=== PATIENT | female | born 1995 | race Caucasian/White ===

== ENCOUNTER 2017-05-12 03:28 | Emergency (ER) | payer SELFPAY ==
--- NOTE | 2017-05-12 04:01 | ER Document Report ---
ED General - General Chief Complaint: Pain With Urination Stated Complaint: POSSIBLE BLADDER INFECTION Time Seen by Provider: 05/12/17 03:39 Notes: Patient is a 21-year-old female presents with complaint of frequent urination, dribbling pain when she pees, and pressure in her bladder. Symptoms have been ongoing for 3 days. She does have history of recurrent UTIs. She does have chronic abnormal vaginal discharge which she has been checked for many times and she says testing is always come back negative. She said this is unchanged. She does have irregular menstrual periods. She was last sexually active 1 week ago. She denies any fevers. No vomiting. No diarrhea. No other complaints at this time. TRAVEL OUTSIDE OF THE [place] IN LAST 30 DAYS: No - Related Data Allergies/Adverse Reactions: No Known Allergies Allergy (Verified 05/12/17 04:01) Past Medical History - Social History Smoking Status: Never Smoker Frequency of alcohol use: Social Drug Abuse: None Family History: Reviewed & Not Pertinent Patient has suicidal ideation: No Patient has homicidal ideation: No Renal/ Medical History: Denies: Hx Peritoneal Dialysis Review of Systems - Review of Systems Notes: My Normal Review Basic REVIEW OF SYSTEMS: CONSTITUTIONAL : Denies fever, chills, or sweats. Denies recent illness. RESPIRATORY: Denies cough, cold, or chest congestion. Denies shortness of breath, difficulty breathing, or wheezing. GASTROINTESTINAL: Denies abdominal pain. Denies nausea, vomiting, or diarrhea. Denies constipation. Last BM: GENITOURINARY: Dysuria and urinary frequency. FEMALE GENITOURINARY: Chronic abnormal vaginal discharge. MUSCULOSKELETAL: Denies neck or back pain or joint pain or swelling. SKIN: Denies rash or skin lesions. NEUROLOGICAL: Denies altered mental status or loss of consciousness. Denies headache. Denies weakness or paralysis or loss of use of either side. Denies problems with gait or speech. Denies sensory or motor loss. ALL OTHER SYSTEMS REVIEWED AND NEGATIVE. Physical Exam - Vital signs Vitals: Temp Pulse Resp BP Pulse Ox 97.9 F 74 17 126/71 H 98 05/12/17 03:34 05/12/17 03:34 05/12/17 03:34 05/12/17 03:34 05/12/17 03:34 - Notes Notes: General Appearance: Well nourished, alert, cooperative, no acute distress, no obvious discomfort. Well-appearing. Vitals: reviewed, See vital signs table. Head: no swelling or tenderness to the head Eyes: PERRL, EOMI, Conjuctiva clear Mouth: No decreasd moisture Lungs: No wheezing, No rales, No rhonci, No accessory muscle use, good air exchange bilaterally. Heart: Normal rate, Regular rythm, No murmur, no rub Abdomen: Normal BS, soft, No rigidity, mild suprapubic abdominal tenderness to palpation., Extremities: strength 5/5 in all extremities, good pulses in all extremities, no swelling or tenderness in the extremities, no edema. Skin: warm, dry, appropriate color, no rash Neuro: speech clear, oriented x 3, normal affect, responds appropriately to questions. Course - Re-evaluation Re-evalutation: 05/12/17 06:43 Patient's symptoms history and urinalysis consistent with a UTI. Patient was placed on Keflex. She is encouraged to return to ER if she has fevers, worsening pain, or feels unwell. Patient encouraged follow-up with her doctor or return to the ER if her symptoms have not resolved in 3 days. Patient agrees with plan will be discharged home. Dictation of this chart was performed using voice recognition software; therefore, there may be some unintended grammatical errors. - Vital Signs Vital signs: Temp Pulse Resp BP Pulse Ox 98.2 F 95 20 109/84 98 05/12/17 05:01 05/12/17 05:01 05/12/17 05:01 05/12/17 05:01 05/12/17 05:01 - Laboratory Laboratory results interpreted by me: 05/12/17 03:50 Urine Blood LARGE H Urine Nitrite POSITIVE H Urine Urobilinogen 4.0 H Ur Leukocyte Esterase SMALL H Discharge - Discharge Clinical Impression: UTI (urinary tract infection) Qualifiers: Urinary tract infection type: site unspecified Hematuria presence: without hematuria Qualified Code(s): N39.0 - Urinary tract infection, site not specified Condition: Good Disposition: HOME, SELF-CARE Additional Instructions: URINARY TRACT INFECTION: Your evaluation indicates that you have a urinary tract infection. This is due to germs growing in the bladder. This is a common problem. This infection usually responds quickly to antibiotics. Your antibiotic should be taken exactly as prescribed. Drink plenty of fluids -- three to four quarts a day. Occasionally, a bladder anesthetic will be prescribed to help stop the feeling of urgency until the antibiotic has a chance to clear the infection. This may cause your urine to be dark orange. Certain urine infections require a culture. If the doctor obtained a culture, the results will be back in two days. You should call to see if a change in treatment is needed. A repeat urinalysis after you finish treatment is often recommended. The physician will let you know if further testing is required. Call the doctor if you develop fever, chills, flank pain, inability to urinate, or blood in the urine. ANTIBIOTIC THERAPY: You have been given an antibiotic prescription. It's important that you take all the medication, unless instructed otherwise by your physician. Failure to complete the entire course can result in relapse of your condition. Common side effects of antibiotics include nausea, intestinal cramping, or diarrhea. Women may develop vaginal yeast infections, and babies can get yeast (thrush) in the mouth following the use of antibiotics. Contact your physician if you develop significant side effects from this medication. Allergy to this antibiotic can result in hives, wheezing, faintness, or itching. If symptoms of allergy occur, stop the medication and call the doctor. CEPHALEXIN: The antibiotic you've been prescribed is a member of the cephalosporin class. This type of antibiotic covers a wide variety of infections, including those of the skin, lungs, and urinary tract. It's useful for staph infections. This antibiotic is slightly similar to the penicillin family. In rare cases , a person who is allergic to penicillin will also be allergic to this medication. If you have had a severe allergic reaction to penicillin, and have not taken this antibiotic since that time, notify your doctor. Antibiotics which cover many germs ("broad spectrum" antibiotics) are more likely to cause diarrhea or "yeast" infections. Women prone to vaginal yeast problems may suffer an attack after taking this antibiotic. In infants, oral thrush (white spots "stuck" on the cheek) or yeast diaper rash may result. See your doctor if these problems occur. Call at once if you develop itching, hives , shortness of breath, or lightheadedness. FOLLOW-UP CARE: If you have been referred to a physician for follow-up care, call the physician s office for an appointment as you were instructed or within the next two days. If you experience worsening or a significant change in your symptoms, notify the physician immediately or return to the Emergency Department at any time for re-evaluation. Please return to the ER immediately if you have fevers, vomiting, or worsening of your symptoms. Return to the ER or your physician in 3 days if you are still having any symptoms. Prescriptions: Cephalexin Monohydrate [Keflex 500 mg Capsule] 500 mg PO BID #10 capsule
[2017-05-12 04:20] LABS: APPEARANCE,URINE CLEAR; BILIRUBIN,URINE NEGATIVE (NEGATIVE); COLOR,URINE AMBER; GLUCOSE, URINE NEGATIVE (NEGATIVE); KETONES,URINE NEGATIVE (NEGATIVE); LEUKOCYTE ESTERASE,URINE SMALL (NEGATIVE); NITRITE,URINE POSITIVE (NEGATIVE); PROTEIN,URINE NEGATIVE (NEGATIVE); URINE SPECIFIC GRAVITY 1.002
[2017-05-12] MEDS ORDERED: CEPHALEXIN 500 MG CAPSULE PO ONE (04:29)
[2017-05-12 05:05] VITALS: BP 109/84
== END 2017-05-12 05:00 | disposition home or self-care (01) ==
LOC: ER 03:28
DX: N39.0 Urinary tract infection, site not specified (principal); R30.9 Painful micturition, unspecified
CPT/HCPCS: 81001; 81025; 99283

== ENCOUNTER 2017-06-17 17:07 | Emergency (ER) | payer OTHER ==
[2017-06-17] MEDS ORDERED: OXYCODONE-ACETAMINOPHEN 5-325 MG TABLET PO ONE (18:02)
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
[2017-06-17 19:24] VITALS: BP 114/66
== END 2017-06-17 19:47 | disposition home or self-care (01) ==
LOC: ER 17:07
PROC: 2W3QX1Z Immobilization of Right Lower Leg using Splint (ICD-10-PCS; principal; 2017-06-17)
DX: S92.301A Fracture of unspecified metatarsal bone(s), right foot, initial encounter for closed fracture (principal); M79.674 Pain in right toe(s); M79.89 Other specified soft tissue disorders; V87.7XXA Person injured in collision between other specified motor vehicles (traffic), initial encounter; F17.200 Nicotine dependence, unspecified, uncomplicated
CPT/HCPCS: 99283

== ENCOUNTER 2019-09-08 20:33 | Emergency (ER) | payer OTHER ==
--- NOTE | 2019-09-08 20:49 | ER Document Report ---
ED Medical Screen (RME) - General Stated Complaint: PELVIC AND ABDOMINAL PAIN Time Seen by Provider: 09/08/19 20:44 Mode of Arrival: Ambulatory Information source: Patient Notes: 23-year-old female G2, P1 approximately 18 weeks presents emergency department with complaints of right lower quadrant abdominal pain for the past 3 days. Denies fever vomiting diarrhea. Reports it hurts when she stands up. Reports vaginal discharge that she has had since the beginning of her . Denies pain with void. Patient right lower quad tender to palpate. I have greeted and performed a rapid initial assessment of this patient. A comprehensive ED assessment and evaluation of the patient, analysis of test results and completion of the medical decision making process will be conducted by additional ED providers. TRAVEL OUTSIDE OF THE [place] IN LAST 30 DAYS: No - Related Data Allergies/Adverse Reactions: No Known Allergies Allergy (Verified 05/12/17 04:01) Past Medical History Renal/ Medical History: Denies: Hx Peritoneal Dialysis
[2019-09-08 21:09] LABS: APPEARANCE,URINE CLEAR; BILIRUBIN,URINE NEGATIVE (NEGATIVE); COLOR,URINE STRAW; GLUCOSE, URINE NEGATIVE (NEGATIVE); KETONES,URINE NEGATIVE (NEGATIVE); LEUKOCYTE ESTERASE,URINE NEGATIVE (NEGATIVE); NITRITE,URINE NEGATIVE (NEGATIVE); PROTEIN,URINE NEGATIVE (NEGATIVE); URINE SPECIFIC GRAVITY 1.004; UROBILINOGEN,URINE NEGATIVE mg/dL (<2.0)
[2019-09-08 21:11] LABS: ABSOLUTE EOSINOPHILS # (AUTO) 0.1 10^3/uL (0.0-0.6); ABSOLUTE LYMPHOCYTES (AUTO) 2.2 10^3/uL (0.5-4.7); ABSOLUTE MONOCYTES (AUTO) 0.8 10^3/uL (0.1-1.4); ABSOLUTE NEUT (AUTO) 6.5 10^3/uL (1.7-8.2); BASOPHILS % (AUTO) 0.4 % (0-2); EOSINOPHILS % (AUTO) 0.6 % (0-6); HEMATOCRIT 39.2 % (36.0-47.0); HEMOGLOBIN 13.6 g/dL (12.0-15.5); MEAN CORPUSCULAR HEMOGLOBIN 29.6 pg (27.0-33.4); MEAN CORPUSCULAR HGB CONC 34.7 g/dL (32.0-36.0); MEAN CORPUSCULAR VOLUME 85 fl (80-97); MONOCYTES % (AUTO) 8.8 % (3-13); PLATELET COUNT 267 10^3/uL (150-450); RED CELL DISTRIBUTION WIDTH 13.3 % (11.5-14.0); SEGMENTED NEUTROPHILS % (AUTO) 67.2 % (42-78); TOTAL CELLS COUNTED % (AUTO) 100 %; WHITE BLOOD COUNT 9.6 10^3/uL (4.0-10.5)
[2019-09-08 21:22] LABS: ALBUMIN 3.4 g/dL (3.5-5.0); ALKALINE PHOSPHATASE 78 U/L (38-126); ANION GAP 7 (5-19); ASPARTATE AMINO TRANSFERASE 15 U/L (14-36); BILIRUBIN,TOTAL 0.2 mg/dL (0.2-1.3); BLOOD UREA NITROGEN 7 mg/dL (7-20); CALCIUM 8.8 mg/dL (8.4-10.2); CARBON DIOXIDE 25 mmol/L (22-30); CHLORIDE 104 mmol/L (98-107); GLUCOSE 104 mg/dL (75-110); POTASSIUM 3.7 mmol/L (3.6-5.0); TOTAL PROTEIN 6.5 g/dL (6.3-8.2)
--- NOTE | 2019-09-08 21:52 | RADIOLOGY REPORT (SQ) ---
US PELVIS EXAM DATE: 09/08/2019 8:46 PM CDT HISTORY: Pelvic pain. COMPARISON: None. TECHNIQUE: Grayscale, color Doppler, and spectral Doppler ultrasound images of the pelvis were obtained. FINDINGS: There is a single live intrauterine gestation in vertex position. The heart rate is 163 bpm. The placenta is anterior. Cervix is closed and measures 3 cm. The appendix is not visualized. No fluid collection is seen in the right lower quadrant. IMPRESSION: 1. Appendix not seen. 2. Single live IUP.
--- NOTE | 2019-09-08 23:10 | ER Document Report ---
Entered by THOM DOBSON SCRIBE 09/08/19 4014 Acting as scribe for:YOLIE DENIS MD ED General - General Chief Complaint: OB Problem (<20wks) Stated Complaint: PELVIC AND ABDOMINAL PAIN Time Seen by Provider: 09/08/19 20:44 Primary Care Provider: ZHOU CABRERA PA [Primary Care Provider] - Follow up as needed Mode of Arrival: Ambulatory Information source: Patient Notes: This 23-year-old female presents to the emergency department complaining of abdominal pain that began three days ago. Patient explains that her abdominal pain is in the RLQ. Patient stated that abdominal pain is worse when straining on the toilet, moving from a sit to a stand and while sitting in a certain position. Patient reports constipation with having a bowel movement every other day. Patient states that she is 18 weeks with her second child with no known complications at this time. Patient is taking vitamins and has had one ultrasound. TRAVEL OUTSIDE OF THE [place] IN LAST 30 DAYS: No - Related Data Allergies/Adverse Reactions: No Known Allergies Allergy (Verified 05/12/17 04:01) Home Medications: vitamins Past Medical History - General Information source: Patient - Social History Smoking Status: Never Smoker Cigarette use (# per day): No Chew tobacco use (# tins/day): No Occupation: Unemployed Lives with: Family Family History: Reviewed & Not Pertinent Patient has suicidal ideation: No Patient has homicidal ideation: No - Medical History Medical History: Negative Surgical Hx: Negative Past Surgical History: Reports: Hx Oral Surgery - [place] Review of Systems - Review of Systems Constitutional: See HPI. denies: Chills, Fever EENT: No symptoms reported Cardiovascular: No symptoms reported Respiratory: No symptoms reported Gastrointestinal: See HPI, Abdominal pain, Nausea, Constipation Genitourinary: No symptoms reported Female Genitourinary: See HPI, Vaginal discharge. denies: Vaginal bleeding, Vaginal odor Musculoskeletal: No symptoms reported Skin: No symptoms reported Hematologic/Lymphatic: No symptoms reported Neurological/Psychological: No symptoms reported -: Yes All other systems reviewed and negative Physical Exam - Vital signs Vitals: Temp Pulse Resp BP Pulse Ox 97.5 F 104 H 16 115/68 98 09/08/19 20:41 09/08/19 20:41 09/08/19 20:41 09/08/19 20:41 09/08/19 20:41 - Notes Notes: Physical Exam: General: Alert, appears well. HEENT: Normocephalic. Atraumatic. PERRL. Extraocular movements intact. Oropharynx clear. Neck: Supple. Non-tender. Respiratory: No respiratory distress. Clear and equal breath sounds bilaterally. Cardiovascular: Regular rate and rhythm. Abdominal: Gravid. Non-tender. No distension. Normal Bowel Sounds. Back: No gross abnormalities. Extremities: Moves all four extremities. Upper extremities: Normal inspection. Normal ROM. Lower extremities: Normal inspection. No edema. Normal ROM. Neurological: Normal cognition. AAOx4. Normal speech. Psychological: Normal affect. Normal Mood. Skin: Warm. Dry. Normal color. Course - Re-evaluation Re-evalutation: 09/08/19 23:04 Patient resting comfortably not showing any signs of distress. - Vital Signs Vital signs: Temp Pulse Resp BP Pulse Ox 97.5 F 104 H 16 115/68 98 09/08/19 20:41 09/08/19 20:41 09/08/19 20:41 09/08/19 20:41 09/08/19 20:41 - Laboratory Result Diagrams: 09/08/19 20:55 09/08/19 20:55 Laboratory results interpreted by me: 09/08/19 20:55 Sodium 135.5 L Creatinine 0.51 L Albumin 3.4 L 09/08/19 23:05 Laboratories essentially normal. - Diagnostic Test Radiology reviewed: Image reviewed, Reports reviewed Radiology results interpreted by me: 09/08/19 23:05 OB pelvic ultrasound shows an intrauterine live heart rate 163 no other acute findings noted. Discharge - Discharge Clinical Impression: Second trimester , Round ligament pain Condition: Stable Disposition: HOME, SELF-CARE Additional Instructions: You are . care is best started as early in as possible. If you're unsure about continuing this , you should discuss this with your physician or with pathology tech at [facility]. You should take only medications approved by your physician. Acetaminophen can safely be taken for minor pains. As a rule, medication for chronic conditions such as asthma or seizures can safely be continued. You should discuss with the physician every medicine you take. Any regular exercise program can be continued. Talk to your physician, however, before engaging in competitive or demanding sports. Alcohol, smoking, and "street drugs" are dangerous to your baby. Cocaine is especially dangerous. Don't use any illicit drugs! You have indicated that you have pain in your right lower quadrant pelvic area on occasion with certain movements and worsened by bowel movements which sometimes are stressful. Most likely this is a ligament strain call the round ligament strain of your during the second trimester. Recommend that you take Tylenol if needed otherwise not to take any medications for this discomfort this intermittent and not chronic and constant all the time. Most likely the round ligament does get stronger during the as its get stronger to hold the uterus in place. We have not found anything on your laboratories or in your ultrasound that indicates that there is any significant problems going on with your . Referrals: ZHOU CABRERA PA [Primary Care Provider] - Follow up as needed I personally performed the services described in the documentation, reviewed and edited the documentation which was dictated to the scribe in my presence, and it accurately records my words and actions.
[2019-09-09 00:27] VITALS: BP 113/70
== END 2019-09-09 00:27 | disposition home or self-care (01) ==
LOC: ER 20:33
DX: O26.92 Pregnancy related conditions, unspecified, second trimester (principal); R10.2 Pelvic and perineal pain; R10.32 Left lower quadrant pain; K59.00 Constipation, unspecified; R11.0 Nausea; Z3A.18 18 weeks gestation of pregnancy
CPT/HCPCS: 36415; 76815; 80053; 81001; 85025; 99284

== ENCOUNTER 2019-12-23 09:41 | Outpatient (CLI) | payer OTHER ==
[2019-12-23] MEDS ORDERED: MAG HYDROX/AL HYDROX/SIMETH SUSP 30 ML UDCUP PO ONE (09:58)
[2019-12-23] MEDS ORDERED: MAG HYDROX/AL HYDROX/SIMETH SUSP 30 ML UDCUP ONE (10:19)
[2019-12-23 10:31] LABS: APPEARANCE,URINE CLEAR; BILIRUBIN,URINE NEGATIVE (NEGATIVE); COLOR,URINE YELLOW; GLUCOSE, URINE NEGATIVE (NEGATIVE); KETONES,URINE 20 mg/dL (NEGATIVE); LEUKOCYTE ESTERASE,URINE TRACE (NEGATIVE); NITRITE,URINE NEGATIVE (NEGATIVE); PROTEIN,URINE NEGATIVE (NEGATIVE); URINE SPECIFIC GRAVITY 1.013; UROBILINOGEN,URINE NEGATIVE mg/dL (<2.0)
[2019-12-23 10:44] LABS: EPITHELIALS (WET MOUNT) 4+ EPITHELIALS SEEN; T.VAGINALIS (WET MOUNT) NO TRICHOMONAS SEEN; WBCS (WET MOUNT) 4+ WBCS SEEN; YEAST (WET MOUNT) NO YEAST SEEN
[2019-12-23 10:47] LABS: URINE AMPHETAMINES SCREEN NEGATIVE; URINE BARBITURATES SCREEN NEGATIVE; URINE BENZODIAZEPINES SCREEN NEGATIVE; URINE COCAINE SCREEN NEGATIVE; URINE MARIJUANA (THC) SCREEN NEGATIVE; URINE METHADONE SCREEN NEGATIVE; URINE PHENCYCLIDINE SCREEN NEGATIVE
[2019-12-23] MEDS ORDERED: LIDOCAINE 2% VISCOUS SOLN 15 ML UDCUP PO ONE (11:00)
[2019-12-23] MEDS ORDERED: METOCLOPRAMIDE HCL ORAL SOLN 10 MG/10 ML UDCUP PO ONE (11:00)
[2019-12-23 11:01] LABS: ABSOLUTE LYMPHOCYTES (AUTO) 1.5 10^3/uL (0.5-4.7); ABSOLUTE MONOCYTES (AUTO) 0.6 10^3/uL (0.1-1.4); ABSOLUTE NEUT (AUTO) 4.7 10^3/uL (1.7-8.2); BASOPHILS % (AUTO) 0.4 % (0-2); EOSINOPHILS % (AUTO) 0.2 % (0-6); HEMATOCRIT 34.7 % (36.0-47.0); HEMOGLOBIN 11.8 g/dL (12.0-15.5); LYMPHOCYTES % (AUTO) 22.2 % (13-45); MEAN CORPUSCULAR HEMOGLOBIN 26.7 pg (27.0-33.4); MEAN CORPUSCULAR HGB CONC 34.1 g/dL (32.0-36.0); MEAN CORPUSCULAR VOLUME 79 fl (80-97); MONOCYTES % (AUTO) 8.8 % (3-13); PLATELET COUNT 235 10^3/uL (150-450); RED BLOOD COUNT 4.42 10^6/uL (3.72-5.28); RED CELL DISTRIBUTION WIDTH 14.3 % (11.5-14.0); SEGMENTED NEUTROPHILS % (AUTO) 68.4 % (42-78); TOTAL CELLS COUNTED % (AUTO) 100 %; WHITE BLOOD COUNT 6.8 10^3/uL (4.0-10.5)
[2019-12-23 11:15] LABS: ALBUMIN 3.2 g/dL (3.5-5.0); ALKALINE PHOSPHATASE 120 U/L (38-126); ASPARTATE AMINO TRANSFERASE 17 U/L (14-36); BILIRUBIN,TOTAL 0.5 mg/dL (0.2-1.3); BLOOD UREA NITROGEN 8 mg/dL (7-20); CALCIUM 8.6 mg/dL (8.4-10.2); CARBON DIOXIDE 23 mmol/L (22-30); CHLORIDE 107 mmol/L (98-107); GLUCOSE 89 mg/dL (75-110); TOTAL PROTEIN 6.4 g/dL (6.3-8.2)
[2019-12-23 11:33] LABS: ANION GAP 4 (5-19)
--- NOTE | 2019-12-23 11:35 | RADIOLOGY REPORT (SQ) ---
EXAM DESCRIPTION: U/S ABDOMEN LIMITED W/O DOP IMAGES COMPLETED DATE/TIME: 12/23/2019 10:34 am REASON FOR STUDY: 33.1wks preg with upper abd pain with eating COMPARISON: None. TECHNIQUE: Dynamic and static grayscale images acquired of the abdomen and recorded on PACS. Additio nal selected color Doppler and spectral images recorded. LIMITATIONS: Limited visualization. Poor acoustical window FINDINGS: PANCREAS: Not visualized. LIVER: Normal size Echo texture normal. No focal masses. LIVER VASCULATURE: Normal directional flow of the main portal vein and hepatic veins. GALLBLADDER: No stones. Normal wall thickness. No pericholecystic fluid. ULTRASOUND-DETECTED DE LA O'S SIGN: Negative. INTRAHEPATIC DUCTS AND COMMON DUCT: CBD and intrahepatic ducts normal caliber. No filling defects. INFERIOR VENA CAVA: Normal flow. AORTA: No aneurysm. RIGHT KIDNEY: Normal size. Normal echogenicity. No solid or suspicious masses. No hydronephros is. No calcifications. PERITONEAL AND RIGHT PLEURAL SPACE: No ascites or effusions. OTHER: No other significant findings. IMPRESSION: NORMAL RIGHT UPPER QUADRANT ULTRASOUND VISUALIZED. TECHNICAL DOCUMENTATION: JOB ID: [id number] [employer]- All Rights Reserved Reading location - IP/workstation name: [email or web address]
[2019-12-23] MEDS ORDERED: PANTOPRAZOLE SODIUM 40 MG TABLET.DR PO PRN (11:46)
[2019-12-23 11:56] LABS: CHLAM PCR NOT DETECTED (NOT DETECT)
[2019-12-23] MEDS ORDERED: PANTOPRAZOLE SODIUM 40 MG TABLET.DR PO ONE (12:00)
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
== END 2019-12-23 12:22 | disposition home or self-care (01) ==
LOC: LC 09:41
PROVIDERS: ATTEND Obstetrics & Gynecology
DX: O26.893 Other specified pregnancy related conditions, third trimester (principal); R10.13 Epigastric pain; Z3A.33 33 weeks gestation of pregnancy
CPT/HCPCS: 59025; 36415; 87210; 85025; 80053; 81001; 80307; 87491; 87591; 76705; J3490 ×2